=== PATIENT | female | born 1950 | race Caucasian/White ===

== ENCOUNTER 2017-10-05 18:16 | Inpatient (IN) | payer MEDICARE, OTHER ==
--- NOTE | 2017-10-05 19:07 | EDM.PDOC ---
ED HPI GENERAL MEDICAL PROBLEM - General Chief Complaint: Abdominal Pain Stated Complaint: BAD STOMACH PAINS Time Seen by Provider: 10/05/17 18:50 Source of Information: Reports: Patient, RN History Limitations: Reports: No Limitations - History of Present Illness INITIAL COMMENTS - FREE TEXT/NARRATIVE: 67 yo female presents with R sided abdominal pain that began about 0500h and has progressed. Initially the pain was RUQ and has since moved so now is more RLQ. No fever or nausea. Has a normal BM this morning and the pain began shortly after that and shortly after breakfast. Has never has surgery on her abdomen before. Onset: Today Onset Date: 10/05/17 Onset Time: 05:00 Duration: Hour(s):, Getting Worse Location: Reports: Abdomen Quality: Reports: Ache Severity: Moderate Improves with: Reports: None Worsens with: Reports: Other (? time) Context: Reports: Other (unknown) Associated Symptoms: Reports: No Other Symptoms Treatments CONSTRUCTION ESTIMATOR: Reports: Other (see below) (none) right abd Pain Score (Numeric/FACES): 8 - Related Data Allergies Allergy/AdvReac Type Severity Reaction Status Date / Time No Known Allergies Allergy Verified 10/05/17 18:48 Home Meds: Home Meds Cyclobenzaprine [Flexeril] 10 mg PO TID PRN 10/05/17 [History] Levothyroxine 75 mcg PO ACBREAKFAST 10/05/17 [History] Venlafaxine [Effexor] 150 mg PO BID 10/05/17 [History] Past Medical History Musculoskeletal History: Reports: Fracture Psychiatric History: Reports: Depression Endocrine/Metabolic History: Reports: Hypothyroidism - Past Surgical History Female Surgical History: Reports: D&C Musculoskeletal Surgical History: Reports: Other (See Below) Other Musculoskeletal Surgeries/Procedures:: left wrist surgery Social & Family History - Tobacco Use Smoking Status *Q: Never Smoker - Caffeine Use Caffeine Use: Reports: Coffee - Recreational Drug Use Recreational Drug Use: No ED ROS GENERAL - Review of Systems Review Of Systems: See Below Constitutional: Reports: No Symptoms HEENT: Reports: No Symptoms Respiratory: Reports: No Symptoms Cardiovascular: Reports: No Symptoms GI/Abdominal: Reports: Abdominal Pain. Denies: Anorexia, Black Stool, Bloody Stool, Constipation, Diarrhea, Decreased Appetite, Hematemesis, Hematochezia, Melena, Nausea, Vomiting : Reports: No Symptoms Musculoskeletal: Reports: No Symptoms Skin: Reports: No Symptoms Neurological: Reports: No Symptoms ED EXAM, GI/ABD - Physical Exam Exam: See Below Exam Limited By: No Limitations General Appearance: Alert, WD/WN, No Apparent Distress Eyes: Bilateral: Normal Appearance Ears: Normal External Exam, Normal Canal, Hearing Grossly Normal, Normal TMs Nose: Normal Inspection, Normal Mucosa, No Blood Throat/Mouth: Normal Inspection, Normal Lips, Normal Oropharynx, Normal Voice, No Airway Compromise Head: Atraumatic, Normocephalic Neck: Normal Inspection, Supple Respiratory/Chest: No Respiratory Distress, Lungs Clear, Normal Breath Sounds, No Accessory Muscle Use Cardiovascular: Regular Rate, Rhythm, No Edema GI/Abdominal Exam: Normal Bowel Sounds, Soft, No Distention, Guarding, Tender ( RLQ). No: Non-Tender, Distended, Rigid, Rebound, Hernia Back Exam: Normal Inspection. No: CVA Tenderness (R), CVA Tenderness (L) Extremities: Normal Inspection, Normal Range of Motion, Non-Tender, No Pedal Edema Neurological: Alert, Oriented, CN II-XII Intact, Normal Cognition, No Motor/ Sensory Deficits Psychiatric: Normal Affect, Normal Mood Skin Exam: Warm, Dry, Intact, Normal Color, No Rash Lymphatic: No Adenopathy Course - Vital Signs Last Recorded V/S: Last Vital Signs Temp 36.7 C 10/05/17 18:55 Pulse 88 10/05/17 18:55 Resp 16 10/05/17 18:55 BP 127/88 10/05/17 18:55 Pulse Ox 99 10/05/17 18:55 - Orders/Labs/Meds Orders: Active Orders 24 hr Category Date Time Status Abdomen Pelvis w Cont [CT] Stat Exams 10/05/17 19:44 Ordered UA W/MICROSCOPIC [URIN] Stat Lab 10/05/17 19:22 Ordered Iopamidol [Isovue-370 (76%)] Med 10/05/17 20:15 Active 50 ml IV . DIRECTED Sodium Chloride 0.9% [Normal Saline] 80 ml Med 10/05/17 20:15 Active IV ASDIRECTED Sodium Chloride 0.9% [Saline Flush] Med 10/05/17 19:44 Active 10 ml FLUSH ASDIRECTED PRN Saline Lock Insert [OM.PC] Routine Oth 06/28/18 19:44 Ordered Medication Orders Sodium Chloride (Normal Saline) 80 mls @ 3 mls/sec IV ASDIRECTED [facility] Last Admin: 10/05/17 20:16 Dose: 3 mls/sec Iopamidol (Isovue-370 (76%)) 50 ml IV . DIRECTED [facility] Last Admin: 10/05/17 20:16 Dose: 50 ml Sodium Chloride (Saline Flush) 10 ml FLUSH ASDIRECTED PRN PRN Reason: Keep Vein Open Last Admin: 10/05/17 20:16 Dose: 10 ml Admin: 10/05/17 20:03 Dose: 10 ml Labs: Laboratory Tests 10/05/17 10/05/17 10/05/17 Range/Units 19:02 19:02 19:22 WBC 9.3 (4.5-11.0) K/uL RBC 4.04 (3.30-5.50) M/uL Hgb 13.0 (12.0-15.0) g/dL Hct 39.0 (36.0-48.0) % MCV 97 (80-98) fL MCH 32 H (27-31) pg MCHC 33 (32-36) % Plt Count 155 (150-400) K/uL Sodium 134 L (140-148) mmol/L Potassium 3.9 (3.6-5.2) mmol/L Chloride 101 (100-108) mmol/L Carbon Dioxide 26 (21-32) mmol/L Anion Gap 10.9 (5.0-14.0) mmol/L BUN 12 (7-18) mg/dL Creatinine 0.6 (0.6-1.0) mg/dL Est Cr Clr Drug Dosing 72.60 mL/min Estimated GFR (MDRD) > 60 (>60) Glucose 116 H (74-106) mg/dL Calcium 9.2 (8.5-10.1) mg/dL C-Reactive Protein 0.42 H (0.0-0.3) mg/dL Urine Color Yellow Urine Appearance Clear Urine pH 9.0 H (4.5-8.0) Ur Specific [place] 1.015 (1.008-1.030) Urine Protein Negative (NEGATIVE) mg/dL Urine Glucose (UA) Normal (NEGATIVE) mg/dL Urine Ketones Negative (NEGATIVE) mg/dL Urine Occult Blood Negative (NEGATIVE) Urine Nitrite Negative (NEGATIVE) Urine Bilirubin Negative (NEGATIVE) Urine Urobilinogen Normal (NORMAL) mg/dL Ur Leukocyte Esterase Negative (NEGATIVE) Urine RBC 0-5 (0-5) Urine WBC Not seen (0-5) Ur Epithelial Cells Not seen Amorphous Sediment Rare Urine Bacteria Not seen Urine Mucus Not seen Meds: Medications Generic Name Dose Route Start Last Admin Trade Name Freq PRN Reason Stop Dose Admin Sodium Chloride 80 mls @ 3 mls/sec 10/05/17 20:15 10/05/17 20:16 Normal Saline IV 3 mls/sec ASDIRECTED LUBNA Administration Iopamidol 50 ml 10/05/17 20:15 10/05/17 20:16 Isovue-370 (76%) IV 50 ml . DIRECTED LUBNA Administration Sodium Chloride 10 ml 10/05/17 19:44 10/05/17 20:16 Saline Flush FLUSH 10 ml ASDIRECTED PRN Administration Keep Vein Open - Radiology Interpretation Free Text/Narrative:: CT abd/pelvis-acute appendicitis CT Results Date: 10/05/17 CT Results Time: 20:40 Departure - Departure Time of Disposition: 21:00 Disposition: Admitted As Inpatient 68 Condition: Fair Clinical Impression: Acute appendicitis Qualifiers: Acute appendicitis type: with localized peritonitis Qualified Code(s): K35.3 - Acute appendicitis with localized peritonitis - Discharge Information Referrals: Nikhil Loyola MD [Primary Care Provider] - Forms: ED Department Discharge - My Orders Last 24 Hours: My Active Orders 10/05/17 19:22 UA W/MICROSCOPIC [URIN] Stat 10/05/17 19:44 Abdomen Pelvis w Cont [CT] Stat Sodium Chloride 0.9% [Saline Flush] 10 ml FLUSH ASDIRECTED PRN Saline Lock Insert [OM.PC] Routine 10/05/17 20:15 Iopamidol [Isovue-370 (76%)] 50 ml IV . DIRECTED Sodium Chloride 0.9% [Normal Saline] 80 ml IV ASDIRECTED - Assessment/Plan Last 24 Hours: My Active Orders 10/05/17 19:22 UA W/MICROSCOPIC [URIN] Stat 10/05/17 19:44 Abdomen Pelvis w Cont [CT] Stat Sodium Chloride 0.9% [Saline Flush] 10 ml FLUSH ASDIRECTED PRN Saline Lock Insert [OM.PC] Routine 10/05/17 20:15 Iopamidol [Isovue-370 (76%)] 50 ml IV . DIRECTED Sodium Chloride 0.9% [Normal Saline] 80 ml IV ASDIRECTED
[2017-10-05] MEDS: Sodium Chloride 0.9% 10 ML Syringe FLUSH PRN ×2 (20:03→20:16)
[2017-10-05] MEDS ORDERED: Sodium Chloride 0.9% 80 ML IV SCH (20:15)
[2017-10-05] MEDS ORDERED: Iopamidol 755 Mg/ML 100 ML Bottle IV SCH (20:15)
[2017-10-05] MEDS ORDERED: Bupivacaine 0.5%/EPINEPHrine 1:200,000 50 ML MDV ONE (21:29)
[2017-10-05] MEDS ORDERED: Piperacillin/Tazobactam 4.5 GM in Sodium Chloride 0.9% 100 ML IV ONE (21:37)
[2017-10-05] MEDS ORDERED: Sodium Chloride 0.9% 1,000 ML IV ONE (21:39)
[2017-10-05] MEDS ORDERED: Ondansetron 4 MG/2 ML SDV ONE (21:41)
[2017-10-05] MEDS ORDERED: Dexamethasone 4 MG/ML SDV ONE (21:41)
[2017-10-05] MEDS ORDERED: fentaNYL 250 MCG/5 ML SDV ONE (21:41)
[2017-10-05] MEDS ORDERED: Neostigmine Methylsulfate 1 MG/ML 5 ML Syringe ONE (21:41)
[2017-10-05] MEDS ORDERED: Rocuronium 50 MG/5 ML Vial ONE (21:41)
[2017-10-05] MEDS ORDERED: Glycopyrrolate 0.2 MG/ML 5 ML MDV ONE (21:41)
[2017-10-05] MEDS ORDERED: Propofol 200 MG/20 ML SDV ONE (21:41)
[2017-10-05] MEDS ORDERED: Docusate Sodium 100 MG Cap PO PRN (21:46)
[2017-10-05] MEDS ORDERED: Promethazine 25 MG/ML SDV IM PRN (21:46)
[2017-10-05] MEDS ORDERED: Benzocaine/Cetylpyridinium/Menthol Lozenge MUCMEM PRN (21:46)
[2017-10-05] MEDS ORDERED: Zolpidem 5 MG Tab PO PRN (21:46)
[2017-10-05] MEDS ORDERED: hydrOXYzine HCl 100 MG/2 ML SDV IM PRN (21:46)
[2017-10-05] MEDS ORDERED: diphenhydrAMINE 50 MG/ML SDV IVPUSH PRN (21:46)
[2017-10-05] MEDS ORDERED: Bisacodyl 5 MG Tab PO PRN (21:46)
[2017-10-05] MEDS ORDERED: Acetaminophen/HYDROcodone 325-5 MG Tab PO PRN (21:46)
[2017-10-05] MEDS ORDERED: fentaNYL 100 MCG/2 ML SDV IVPUSH PRN (21:49)
[2017-10-05] MEDS ORDERED: Sodium Chloride 0.9% 1,000 ML IV SCH (23:45)
[2017-10-06] MEDS: Piperacillin/Tazobactam 3.375 GM in Sodium Chloride 0.9% 100 ML IV SCH ×2 (01:11→04:45)
[2017-10-06] MEDS ORDERED: Piperacillin/Tazobactam 4.5 GM Vial ONE (03:47)
[2017-10-06] MEDS ORDERED: Sodium Chloride 0.9% 100 ML ONE (04:35)
[2017-10-06] MEDS ORDERED: Levothyroxine 75 MCG Tab PO SCH (07:30)
--- NOTE | 2017-10-06 07:51 | OR ---
DATE OF PROCEDURE: 10/05/2017 PROCEDURE: Laparoscopic appendectomy. FINDINGS: Non perforated appendicitis. No evidence of abscess. No significant drainage. COMPLICATIONS: None. INSULATION BLOWER: None PREOPERATIVE DIAGNOSIS: Appendicitis. POSTOPERATIVE DIAGNOSIS: Appendicitis. RISKS: Risks, benefits, alternatives, and limitations including bowel injury, infection, bleeding, and perforation were explained to the patient and they wished to proceed. I also discussed possibility of an open surgery, abscess formation immediately and in the postoperative phase, and other risks not listed here. We also discussed the general cardiovascular risks including cardiovascular compromise, wound infection, and other risks. PROCEDURE IN DETAIL: The patient was placed in the supine position. A supraumbilical curvilinear incision was made. A Veress needle was used to enter the abdomen without abnormality and a drop test was performed without abnormality. An Optiview trocar was inserted. No evidence of abnormality or injury was noted. Two additional 5 mm ports, one in the right mid abdomen and one in the midline superior to the bladder with . The appendix itself was retrocecal and densely adhered to cecum. Using blunt dissection was able to mobilize from the cecum itself. The appendix was described as non-ruptured, without evidence of abscess, consistent with early appendicitis. This was transected and removed using 2 morales load staplers and a bag. The bag did not perforate during the removal and did not break during the removal. Once the appendix was removed, the appendiceal stump was checked for evidence of bleeding or an abnormality, which none noted. This was then thoroughly irrigated with 1 L of irrigation. The irrigation was removed from the pelvis, around the liver, and the area of the cecum. The air was removed. The abdomen was subsequently deflated. The incision sites were irrigated and closed with 3-0 Vicryl and 4-0 Vicryl interrupted running sutures and Dermabond was applied. The patient tolerated the procedure well. Nino Milton MD /[id number]
[2017-10-06] MEDS ORDERED: Cyclobenzaprine 10 MG Tab PO PRN (08:00)
--- NOTE | 2017-10-06 08:00 | CONS ---
DATE OF SERVICE: 10/05/2017 REFERRING PHYSICIAN: Kody Camp MD CONSULTING PHYSICIAN: Nino Milton MD This is a consult from Dr. Camp. REASON FOR CONSULTATION: Abdominal pain. HISTORY OF PRESENT ILLNESS: This is a pleasant 67-year-old female, who has had the right lower quadrant abdominal pain that began at about 5 this morning, and has progressed. She has no fever, nausea, or vomiting. The patient is having bowel movements. She has not had any previous abdominal surgery. PAST MEDICAL HISTORY: 1. Osteoarthritis. 2. Injuries to her knee and wrist. 3. Hypothyroidism. 4. History of depression. PAST SURGICAL HISTORY: 1. Orthopedic surgery as described above. 2. No previous abdominal surgery. SOCIAL HISTORY: She does not smoke. FAMILY HISTORY: Negative for appendiceal carcinoma. REVIEW OF SYSTEMS: GENERAL: The patient is doing well. HEENT: No symptoms. RESPIRATORY: No history of asthma. CARDIOVASCULAR: No history of myocardial infarction. GASTROINTESTINAL: As above. GENITOURINARY: No dysuria. MUSCULOSKELETAL: No significant symptoms. SKIN: No symptoms. NEUROLOGICAL: No changes. PSYCHIATRIC: No gross changes. PHYSICAL EXAMINATION: VITAL SIGNS: Temperature was 98.1, blood pressure was 127/67, pulse was 88, respirations were 16, and 99% on room air. GENERAL: The patient is resting fairly comfortably. HEENT: Pupils are equal. NECK: Supple. LUNGS: Clear. CARDIOVASCULAR: Regular rhythm and rate. ABDOMEN: Pain with palpation, mild right lower quadrant minimal to no rebound/guarding. EXTREMITIES: Full range of motion. Strength is 5/5. NEUROLOGICAL: Oriented x3. PSYCHIATRIC: No gross depression. LABORATORY RESULTS: Showed a normal white blood cell count, basic metabolic panel is showing a normal creatinine, and her urinalysis did not show any bacteria. IMAGING: Is unavailable but the CT scan is reported as per Emergency Room doctor, and is positive for appendicitis. ASSESSMENT AND PLAN: To the operating room for laparoscopic appendectomy and we discussed risks, benefits, alternatives, and limitations including, but not limited to infection, bleeding, and injury to abdominal structures with possibility of open surgery and other risks not listed here. The patient understands these risks and wishes to proceed. Nino Milton MD /[id number]
[2017-10-06] MEDS ORDERED: Venlafaxine 75 MG Tab PO SCH (09:00)
--- NOTE | 2017-10-06 09:36 | DISCH ---
ADMISSION DIAGNOSES: 1. Acute appendicitis. 2. Depression. 3. Hypothyroidism. DISCHARGE DIAGNOSES: Laparoscopic appendectomy for nonperforated appendicitis. HISTORY: Hyacinth Stoll is a 67-year-old female presented to the emergency department with acute right lower quadrant abdominal pain. After preoperative evaluation and discussion of possible risks and possible complications, she wished to proceed with surgical procedure. HOSPITAL COURSE: Hyacinth had her surgery on 10/05/2017, she had no operative complications. On postoperative day #1, her pain was well managed. Activity was good. Oral intake adequate. Vital signs stable. She is ready to be discharged to home. PHYSICAL EXAMINATION: GENERAL: Hyacinth is a 67-year-old female. VITAL SIGNS: Height is 5 feet 4 inches. Weight is 108 pounds. TPR is 98, 66, 16, blood pressure 115/68. HEENT: Negative. NECK: Supple. HEART: Regular rate and rhythm. LUNGS: Clear. ABDOMEN: Trocar sites are glued. Slight bruising noted around each trocar site, nonacute. Normal tenderness to palpation. EXTREMITIES: Without peripheral edema. DISPOSITION: Discharged to home. CONDITION: Stable and improving. FOLLOWUP: Followup appointment with Dr. Nino Milton, at [facility] in 7 to 14 days. HOME MEDICATIONS: 1. [place] 5/325 mg one to two q.4 hours p.r.n. pain #20. 2. She is to resume her home medication. DIET: Usual diet as tolerated. No lifting greater than 25 pounds. May shower. DISCHARGE INSTRUCTIONS: Notify provider if any fever, increased pain, swelling, redness, drainage, nausea, or vomiting.
[2017-10-06] MEDS ORDERED: Piperacillin/Tazobactam/Dext 3.375 GM in Premix Bag 1 BAG IV SCH (10:00)
== END 2017-10-06 11:46 | disposition home or self-care (01) | DRG 343 ==
LOC: JP.ED 18:16 → JP.SDS 21:16 → JP.MS 21:46
PROVIDERS: ADMIT Surgery; ATTEND Surgery
PROC: 0DTJ4ZZ Resection of Appendix, Percutaneous Endoscopic Approach (ICD-10-PCS; principal; 2017-10-05)
DX: K35.3 Acute appendicitis with localized peritonitis (principal); R10.9 Unspecified abdominal pain; K35.80 Unspecified acute appendicitis; Z79.899 Other long term (current) drug therapy; F32.9 Major depressive disorder, single episode, unspecified; E03.9 Hypothyroidism, unspecified; M19.90 Unspecified osteoarthritis, unspecified site
CPT/HCPCS: 36415; 74177; 80048; 81001; 85027; 86140; 93005; J1100; J2405; J2704; J2710; J3010; J7030 ×2; J7050 ×2; Q9967; 85025; 96372; 96374; 99285-25; A9270-GY; J2543

== ENCOUNTER 2025-03-26 11:12 | Inpatient (IN) | payer MEDICARE ==
[2025-03-26] MEDS ORDERED: Naloxone 0.4 MG/ML SDV IVPUSH PRN ×2 (11:33→14:27)
[2025-03-26 13:22] LABS: BASOPHILS PERCENT AUTO 0.6 % (0.1-1.3); EOSINOPHILS ABSOLUTE AUTO 0.03 K/uL (0.00-0.40); EOSINOPHILS PERCENT AUTO 0.8 % (0.0-5.4); IMMATURE GRAN PERCENT AUTO 0.6 % (0.0-0.7); LYMPHOCYTES ABSOLUTE AUTO 0.61 K/uL (0.8-3.3); LYMPHOCYTES PERCENT AUTO 17.0 % (11.4-47.7); MONOCYTES ABSOLUTE AUTO 0.24 K/uL (0.20-0.90); MONOCYTES PERCENT AUTO 6.7 % (3.3-12.6); NEUTROPHILS ABSOLUTE AUTO 2.66 K/uL (1.0-7.6); NEUTROPHILS PERCENT AUTO 74.3 % (40.0-78.1); PLATELET COUNT,PLT 200 K/uL (130-375); RED BLOOD CELL COUNT 3.48 M/uL (3.77-5.24); WHITE BLOOD CELL COUNT,WBC 3.6 K/uL (3.2-11.0)
[2025-03-26 13:23] LABS: BASOPHILS ABSOLUTE AUTO 0.02 K/uL (0.00-0.10); IMMATURE GRAN ABSOLUTE AUTO 0.02 K/uL (0.00-0.23)
[2025-03-26 13:29] LABS: BLOOD UREA NITROGEN,BUN 25.0 mg/dL (7-18); CARBON DIOXIDE,CO2 27.0 mmol/L (21-32); CHLORIDE,CL 93.0 mmol/L (100-108); CREATININE 0.4 mg/dL (0.6-1.0); EST CRCL DRUG DOSING (CG) 91.03 mL/min; ESTIMATED GFR 105.0 mL/min (>60); GLUCOSE RANDOM 73.0 mg/dL (74-106); POTASSIUM,K 5.4 mmol/L (3.6-5.2); SODIUM,NA 128.0 mmol/L (140-148)
[2025-03-26] MEDS ORDERED: fentaNYL 100 MCG/2 ML SDV ONE (16:08)
[2025-03-26] MEDS ORDERED: Midazolam 1 MG/ML 2 ML SDV ONE (16:08)
[2025-03-26] MEDS ORDERED: Propofol 200 MG/20 ML SDV ONE (16:08)
[2025-03-26] MEDS ORDERED: ePHEDrine 50 MG/ML SDV ONE ×2 (16:55→17:24)
[2025-03-26] MEDS ORDERED: Ondansetron 4 MG/2 ML SDV IV PRN (19:01)
[2025-03-26] MEDS ORDERED: Sodium Chloride 0.9% 10 ML Syringe FLUSH PRN (19:01)
[2025-03-26] MEDS: Sennosides/Docusate Sodium 50-8.6 MG Tab PO SCH (20:43)
[2025-03-27 05:57] LABS: PLATELET COUNT,PLT 161.0 K/uL (130-375); RED BLOOD CELL COUNT 2.57 M/uL (3.77-5.24); WHITE BLOOD CELL COUNT,WBC 6.2 K/uL (3.2-11.0)
[2025-03-27 06:15] LABS: BLOOD UREA NITROGEN,BUN 26.0 mg/dL (7-18); CARBON DIOXIDE,CO2 29.0 mmol/L (21-32); CHLORIDE,CL 96.0 mmol/L (100-108); CREATININE 0.5 mg/dL (0.6-1.0); EST CRCL DRUG DOSING (CG) 72.25 mL/min; ESTIMATED GFR 100.0 mL/min (>60); GLUCOSE RANDOM 77.0 mg/dL (74-106); POTASSIUM,K 4.6 mmol/L (3.6-5.2); SODIUM,NA 131.0 mmol/L (140-148)
[2025-03-28] MEDS: Sennosides/Docusate Sodium 50-8.6 MG Tab PO SCH (20:55)
[2025-03-29 06:17] LABS: BLOOD UREA NITROGEN,BUN 29.0 mg/dL (7-18); CARBON DIOXIDE,CO2 27.0 mmol/L (21-32); CHLORIDE,CL 93.0 mmol/L (100-108); CREATININE 0.6 mg/dL (0.6-1.0); EST CRCL DRUG DOSING (CG) 60.21 mL/min; ESTIMATED GFR 95.0 mL/min (>60); GLUCOSE RANDOM 102.0 mg/dL (74-106); POTASSIUM,K 4.4 mmol/L (3.6-5.2); SODIUM,NA 127.0 mmol/L (140-148)
[2025-03-30] MEDS: Furosemide 20 MG/2 ML VIAL IVPUSH ONE (16:32)
== END 2025-03-31 10:52 | DRG 481 ==
LOC: JP.ED 11:12 → JP.SDS 16:04 → JP.MS 18:51
PROVIDERS: ADMIT Hospitalist; ATTEND Specialist
PROC: 0QS634Z Reposition Right Upper Femur with Internal Fixation Device, Percutaneous Approach (ICD-10-PCS; principal; 2025-03-26 15:00)
DX: S72.001A Fracture of unspecified part of neck of right femur, initial encounter for closed fracture (principal); I10 Essential (primary) hypertension; S72.141A Displaced intertrochanteric fracture of right femur, initial encounter for closed fracture; D62 Acute posthemorrhagic anemia; Z79.890 Hormone replacement therapy; E87.1 Hypo-osmolality and hyponatremia; E87.5 Hyperkalemia; E03.9 Hypothyroidism, unspecified; W19.XXXA Unspecified fall, initial encounter; K59.00 Constipation, unspecified; H54.7 Unspecified visual loss; H40.9 Unspecified glaucoma; F32.A Depression, unspecified; Z90.49 Acquired absence of other specified parts of digestive tract; Z98.890 Other specified postprocedural states; Z88.8 Allergy status to other drugs, medicaments and biological substances; Z87.891 Personal history of nicotine dependence; Z79.899 Other long term (current) drug therapy
CPT/HCPCS: 36415; 73502 ×2; 76000; 80048; 84443; 85025; 93005; 96374; 99284; 99285; C1713 ×3; C1776; J0690; J2250; J2704; J3010; J7030; 36430; 73552-26-LT; 73552-RT; 83735; 84132; 85018; 85027; 86850; 86900; 86901; 86920; 86922; 93010; 97110-GP; 97161-GP; 99223; 99232; 99238; A9270-GY; J0665; J1171; J1938; J7040; P9016